=== PATIENT | female | born 1950 | race Caucasian/White ===

== ENCOUNTER → 2017-08-20 | Outpatient (CLI) | payer MEDICARE, OTHER ==
[~2017-08-20] MED LIST: ALB18R INH; ASCO-191 PO; ASPI-1471 PO; ATOR10TA24 PO; ATOR10TA65 PO; ATR10 PO; CALC-852 PO; CALC500T6 PO; CALC500T76 PO; CHOL10005 PO; CHOL100061 PO; CLO75 PO; FISH OIL1 CAP PO; GLUC750T10 PO; INHALER; OMEG-11 PO; OMEG-36 PO; PIRB14AE3 IH; PNEI IJ; PNEU0.5D3 IM; SCOT TD; TERB5TAB15 PO; VITA1CAP46 PO; [UNRECOGNIZED DRUG - CODE] PO
--- NOTE | 2017-08-20 15:12 | RADIOLOGY IMAGING REPORT ---
FACILITY: [facility] PATIENT NAME: Catherine Mayorga : 1950 MR: [id number] V: [id number] EXAM DATE: ORDERING PHYSICIAN: NILSA SAMUEL TECHNOLOGIST: Location: [facility] Patient: Catherine Mayorga : 1950 Visit/Account:[id number] Date of Sevice: 08/20/2017 DEXA Scan Clinical history: Osteopenia. Comparison: DEXA scan from 03/03/2013. LUMBAR SPINE: The bone mineral density (BMD) measured from L1-L4 correlates with a Z-score of -0.3 and a T-score of -2.4 which is osteopenia as defined by the World Health Organization. The corresponding risk of fra cture in the lumbar spine is 4-6 times increased compared with a young adult reference population. T his value has decrease by 2.2 % since the prior study. More than 5% change is considered significant . HIP: Bone mineral density (BMD) measured in the LEFT total hip region correlates with a Z-score -0.2 and a T-score of -1.9 which is osteopenia as defined by the World Health Organization. The corresponding risk of fracture in the hip is 3-4 times increased compared to a young adult reference population. Th is value has decrease by 3.6 % since the prior study. More than 5% change is considered significant. T score left femoral neck -2.4 Bone mineral density (BMD) measured in the Femoral Neck region measures 0.704 g/cm?. IMPRESSION: 1. Lumbar spine: Osteopenia. There has been 2.2% decrease in the bone mineral density since the pre vious exam. 2. Left Total Hip: Osteopenia. There has been 3.6% decrease in the bone mineral density since the p revious exam. 3. Femoral Neck: Bone Mineral Density is 0.704 g/cm? The next DEXA scan of this patient should include the following sites: L1-L4 and the left hip. FRAX? WHO Fracture Risk Assessment Tool link: <http://www.shef.ac.uk/FRAX/tool.jsp?locationValue=9> PLEASE NOTE: 1) The World Health Organization defines low BMD as follows: T-score Normal > -1 Osteopenia < -1 and > -2.5 Osteoporosis < -2.5 without fractures Established osteoporosis < -2.5 with fractures 2) In general, you may wish to consider: Diagnosis Treatment Follow-up DEXA Normal BMD Prevention 2-3 years Osteopenia Prevention/therapy 1-2 years Osteoporosis Therapy Yearly 3) Fracture risk estimated from the T-score is more accurate for vertebral fractures (often spontane ous) than for hip fractures. Report Dictated By: Shahla Haddad MD at 08/20/2017 3:07 PM Report E-Signed By: Shahla Haddad MD at 08/20/2017 3:08 PM HILDAN:OXANAVJennifer
--- NOTE | 2017-08-21 09:06 | RADIOLOGY IMAGING REPORT ---
[place] [facility] [place] NAME: JOVANA GAMBLE : [id number] MR: [id number] V: [id number] EXAM DATE: ORDERING PHYSICIAN: NILSA SAMUEL TECHNOLOGIST: Lien Chong PROCEDURE:BILATERAL DIGITAL SCREENING MAMMOGRAM WITH CAD ASSISTED INTERPRETATION & 3D TOMOSYNTHESIS COMPARISON:Prior mammograms 03/06/16, 03/05/15, 03/13/14, 03/03/13, 02/24/12, 01/30/11 INDICATIONS:screening FINDINGS: Dense heterogeneous fibroglandular tissue is seen throughout the breasts. The parenchymal pattern has remained stable allowing for difference in mammographic technique & patient positioning. There is no evidence of malignant appearing mass, malignant appearing calcifications or other secondary sign of malignancy in either breast. DIAGNOSTIC CATEGORY 1--NEGATIVE. RECOMMENDATIONS: ROUTINE MAMMOGRAM AND CLINICAL EVALUATION. IMPRESSION: BIRADS 1: Negative No significant abnormality is seen Dictated by: Shahla Haddad M.D. on 08/20/2017 at 16:54 Transcribed by: KELLEN on 08/21/2017 at 8:54 Approved by: Shahla Haddad M.D. on 08/21/2017 at 9:05 [facility]
== END ==
LOC: MAMO 00:46
PROVIDERS: ATTEND Internal Medicine
DX: Z13.820 Encounter for screening for osteoporosis (principal); Z12.31 Encounter for screening mammogram for malignant neoplasm of breast; M85.89 Other specified disorders of bone density and structure, multiple sites; Z78.0 Asymptomatic menopausal state
CPT/HCPCS: 77063; 77067; 77080

== ENCOUNTER → 2018-09-23 | Outpatient (CLI) | payer MEDICARE, OTHER ==
[~2018-09-23] MED LIST changes: +CHOL500045 PO; +PYRI100T57 PO
--- NOTE | 2018-09-24 15:01 | RADIOLOGY IMAGING REPORT ---
FACILITY: [facility] - [place] PATIENT NAME: JOVANA GAMBLE : [id number] MR: [id number] V: [id number] EXAM DATE: ORDERING PHYSICIAN: ОЛЕГ GANNON TECHNOLOGIST: Lien hCong PROCEDURE:BILATERAL DIGITAL SCREENING MAMMOGRAM WITH CAD ASSISTED INTERPRETATION & 3D TOMOSYNTHESIS COMPARISON:Prior mammograms 08/20/17, 03/06/16, 03/05/15, 03/13/14, 03/03/13, 02/24/12. INDICATIONS:SCREENING FINDINGS: The breasts are heterogeneously dense which can obscure small masses. The parenchymal pattern has remained stable allowing for difference in mammographic technique & patient positioning. DIAGNOSTIC CATEGORY 1--NEGATIVE. RECOMMENDATIONS: ROUTINE MAMMOGRAM AND CLINICAL EVALUATION. IMPRESSION: BIRADS 1: Negative. No significant abnormality is seen. Dictated by: Shahla Haddad M.D. on 09/23/2018 at 15:55 Transcribed by: KELLEN on 09/24/2018 at 13:32 Approved by: Shahla Haddad M.D. on 09/24/2018 at 15:00 [facility]
== END ==
LOC: MAMO 01:00
PROVIDERS: ATTEND Nurse Practitioner Family
DX: Z12.31 Encounter for screening mammogram for malignant neoplasm of breast (principal)
CPT/HCPCS: 77063; 77067